=== PATIENT | male | born 1975 | race Caucasian/White ===

== ENCOUNTER 2017-05-28 20:09 | Emergency (ER) | payer OTHER ==
[~2017-05-28] VITALS: Ht 180.3 cm; Wt 104.5 kg
[2017-05-28] MEDS ORDERED: HYDROCODONE/ACETAMINOPHEN 5-325 MG TABLET PO ONE (21:00)
[2017-05-28 23:08] VITALS: BP 140/85
== END 2017-05-28 23:59 | disposition home or self-care (01) ==
LOC: EMS 20:11
DX: S49.91XA Unspecified injury of right shoulder and upper arm, initial encounter (principal); W10.9XXA Fall (on) (from) unspecified stairs and steps, initial encounter; Y93.89 Activity, other specified; Y92.89 Other specified places as the place of occurrence of the external cause; Y99.8 Other external cause status
CPT/HCPCS: 73200; 99284

== ENCOUNTER 2017-08-02 23:40 | Emergency (ER) | payer MEDICAID, OTHER ==
[~2017-08-02] VITALS: Ht 180.3 cm; Wt 109.0 kg
[2017-08-03] MEDS ORDERED: PROMETHAZINE HCL/CODEINE 6.25-10MG/5ML SYRUP UDCUP PO ONE (03:15)
[2017-08-03] MEDS ORDERED: KETOROLAC TROMETHAMINE 60 MG/2 ML VIAL IM ONE (03:15)
[2017-08-03] MEDS ORDERED: IPRATROPIUM BROMIDE 0.5 MG/2.5 ML NEB SOLUTION NEB ONE (03:15)
[2017-08-03] MEDS ORDERED: ALBUTEROL SULFATE 2.5 MG/0.5 ML NEB SOLUTION NEB ONE (03:15)
[2017-08-03 03:42] VITALS: BP 130/82
== END 2017-08-03 03:44 | disposition home or self-care (01) ==
LOC: EMS 23:41
DX: B34.9 Viral infection, unspecified (principal); J02.9 Acute pharyngitis, unspecified; J00 Acute nasopharyngitis [common cold]
CPT/HCPCS: 71045; 94640; 96372; 99283; J1885; J7613

== ENCOUNTER 2018-09-18 11:28 | Emergency (ER) | payer MEDICAID ==
[~2018-09-18] VITALS: Ht 182.9 cm; Wt 106.8 kg
[2018-09-18 13:00] VITALS: BP 134/82
== END 2018-09-18 13:06 | disposition home or self-care (01) ==
LOC: EDUNIT# 11:28 → EMS 11:34
DX: R06.83 Snoring (principal); R06.02 Shortness of breath; R51 Headache

== ENCOUNTER 2019-03-24 21:04 | Emergency (ER) | payer SELFPAY ==
[~2019-03-24] VITALS: Ht 180.3 cm; Wt 115.9 kg
[2019-03-24] MEDS ORDERED: PERTUSS(ACELL),DIPH,TET VAC/PF 0.5 ML VIAL IM ONE (21:45)
[2019-03-24 22:40] VITALS: BP 135/71
== END 2019-03-24 22:41 | disposition home or self-care (01) ==
LOC: EMS 21:05
DX: S91.312A Laceration without foreign body, left foot, initial encounter (principal); W25.XXXA Contact with sharp glass, initial encounter; Y93.89 Activity, other specified; Y92.89 Other specified places as the place of occurrence of the external cause; Y99.8 Other external cause status
CPT/HCPCS: 12001; 90471; 90715

== ENCOUNTER 2021-03-13 23:21 | Emergency (ER) | payer MEDICAID ==
[~2021-03-13] VITALS: Ht 180.3 cm; Wt 109.1 kg
[2021-03-14 00:27] LABS: COVID AG,FIA SOURCE NASOPHARYNGEAL
[2021-03-14] MEDS ORDERED: ACETAMINOPHEN/CODEINE 300-30 MG TABLET PO ONE (01:15)
[2021-03-14] MEDS ORDERED: IBUPROFEN 600 MG TABLET PO ONE (01:15)
[2021-03-14] MEDS ORDERED: GuaiFENesin/D-METHORPHAN [SUGAR-FREE] 200-20MG/10 ML SYRUP UDCUP PO ONE (01:15)
[2021-03-14 02:30] VITALS: BP 129/88
== END 2021-03-14 02:45 | disposition home or self-care (01) ==
LOC: EMS 23:23
DX: U07.1 COVID-19 (principal)
CPT/HCPCS: 87426; 99283; U0003

== ENCOUNTER 2022-06-25 16:35 | Emergency (ER) | payer MEDICAID ==
[~2022-06-25] VITALS: Ht 180.3 cm; Wt 110.0 kg
[2022-06-25 18:45] VITALS: BP 121/79
[2022-06-25] MEDS ORDERED: LIDOCAINE/PF 1% 2 ML VIAL IM ONE (18:45)
[2022-06-25] MEDS ORDERED: CefTRIAXone SODIUM 1 GM/VIAL IM ONE (18:45)
[2022-06-25] MEDS ORDERED: AZITHROMYCIN 500 MG TABLET PO ONE (18:45)
== END 2022-06-25 19:04 | disposition home or self-care (01) ==
LOC: EMS 16:35
DX: Z20.2 Contact with and (suspected) exposure to infections with a predominantly sexual mode of transmission (principal)
CPT/HCPCS: 99283; 96372; J0696; J3490; Q9967

== ENCOUNTER 2022-11-09 18:19 | Emergency (ER) | payer MEDICAID ==
[~2022-11-09] VITALS: Ht 180.3 cm; Wt 100.0 kg
[2022-11-09 18:23] VITALS: BP 151/88
[2022-11-09 20:07] LABS: APPEARANCE,URINE TURBID (CLEAR); BILIRUBIN,URINE NEGATIVE (NEGATIVE); GLUCOSE, URINE (UA) NEGATIVE (NEGATIVE); KETONES,URINE NEGATIVE (NEGATIVE); LEUKOCYTE ESTERASE ,URINE NEGATIVE (NEGATIVE); NITRATE,URINE NEGATIVE (NEGATIVE); OCCULT BLOOD,URINE NEGATIVE (NEGATIVE); PROTEIN,URINE 30-70 mg/dL (NEGATIVE); UROBILINOGEN,URINE <=1.0 mg/dL (<=1.0)
[2022-11-09] MEDS ORDERED: LIDOCAINE/PF 1% 2 ML VIAL IM ONE (21:30)
[2022-11-09] MEDS ORDERED: AZITHROMYCIN 500 MG TABLET PO ONE (21:30)
[2022-11-09] MEDS ORDERED: CefTRIAXone SODIUM 1 GM/VIAL IM ONE (21:30)
[2022-11-09] MEDS ORDERED: DOXY-354 PO (21:45)
[2022-11-09] MEDS ORDERED: LIDOCAINE/PF 1% 2 ML VIAL ONE (22:02)
== END 2022-11-09 22:17 | disposition home or self-care (01) ==
LOC: EMS 18:22
DX: Z20.2 Contact with and (suspected) exposure to infections with a predominantly sexual mode of transmission (principal); F15.90 Other stimulant use, unspecified, uncomplicated
CPT/HCPCS: 99283; 81003; 87491; 87591; 96372; J0696; J3490; Q9967

== ENCOUNTER 2022-11-15 18:58 | Emergency (ER) | payer MEDICAID ==
[~2022-11-15] VITALS: Ht 180.3 cm; Wt 102.3 kg
[~2022-11-15 18:58] MED LIST: DOXY-354 PO
[2022-11-15 19:35] LABS: COVID AG,FIA SOURCE NASAL SWAB
[2022-11-15 19:52] LABS: INFLUENZA TYPE A NEGATIVE FOR TYPE A (NEGATIVE); INFLUENZA TYPE B NEGATIVE FOR TYPE B (NEGATIVE)
[2022-11-15 22:25] VITALS: BP 149/90
== END 2022-11-15 22:27 | disposition home or self-care (01) ==
LOC: EMS 18:58
DX: J06.9 Acute upper respiratory infection, unspecified (principal); F15.90 Other stimulant use, unspecified, uncomplicated; Z20.822 Contact with and (suspected) exposure to COVID-19
CPT/HCPCS: 71045; 87804; 99284

== ENCOUNTER 2023-06-20 10:39 | Emergency (ER) | payer MEDICAID ==
[~2023-06-20] VITALS: Ht 180.3 cm; Wt 100.0 kg
[2023-06-20 10:46] VITALS: TEMP 98.1
[2023-06-20] MEDS ORDERED: ACETAMINOPHEN 500 MG TABLET PO ONE (12:30)
[2023-06-20 12:32] LABS: COVID AG,FIA SOURCE NASAL SWAB
[2023-06-20 12:45] LABS: INFLUENZA TYPE A NEGATIVE FOR TYPE A (NEGATIVE); INFLUENZA TYPE B NEGATIVE FOR TYPE B (NEGATIVE)
[2023-06-20 12:46] LABS: SARS-COV2 (COVID) ANTIGEN,FIA Negative (Negative)
[2023-06-20 13:37] VITALS: BP 132/81; PULSE 86; RESP 18
[2023-06-20] MEDS ORDERED: BENZ-227 PO (14:07)
[2023-06-20] MEDS ORDERED: AZIT250T9 PO (14:07)
== END 2023-06-20 14:20 | disposition home or self-care (01) ==
LOC: EMS 10:39
DX: J06.9 Acute upper respiratory infection, unspecified (principal); Z20.822 Contact with and (suspected) exposure to COVID-19
CPT/HCPCS: 71045; 87804; 99284

== ENCOUNTER 2024-07-29 19:04 | Emergency (ER) | payer MEDICAID ==
[~2024-07-29] VITALS: Ht 180.3 cm; Wt 108.0 kg
[~2024-07-29 19:04] MED LIST changes: +BENZ-227 PO; -DOXY-354 PO
[2024-07-29 19:10] VITALS: TEMP 98.3
[2024-07-29] MEDS: HYDROCODONE/ACETAMINOPHEN 5-325 MG TABLET PO ONE (19:29)
[2024-07-29] MEDS: PERTUSS(ACELL),DIPH,TET/PF 0.5 ML SYRINGE [ADULT] IM. ONE (19:29)
[2024-07-29] MEDS: LIDOCAINE 1% 10 ML VIAL PERC ONE (20:23)
[2024-07-29] MEDS: BACITRACIN 0.9 GM PACKET OINTMENT TP ONE (21:00)
[2024-07-29] MEDS ORDERED: CEPH-558 PO (21:06)
[2024-07-29] MEDS ORDERED: IBUP-1492 PO (21:07)
[2024-07-29 21:10] VITALS: BP 131/77; PULSE 70; RESP 16; O2SAT 98
== END 2024-07-29 21:32 | disposition home or self-care (01) ==
LOC: EMS 19:05
DX: S61.210A Laceration without foreign body of right index finger without damage to nail, initial encounter (principal); W23.0XXA Caught, crushed, jammed, or pinched between moving objects, initial encounter; Y93.89 Activity, other specified; Y92.89 Other specified places as the place of occurrence of the external cause; Y99.8 Other external cause status
CPT/HCPCS: 99283; 73140; 90715; 90471; 12001; J3490

== ENCOUNTER 2024-12-27 16:26 | Emergency (ER) | payer MEDICAID, OTHER ==
[~2024-12-27] VITALS: Ht 180.3 cm; Wt 109.1 kg
[~2024-12-27 16:26] MED LIST changes: -BENZ-227 PO; +CEPH-558 PO; +IBUP-1492 PO
[2024-12-27 16:29] VITALS: TEMP 98.6
[2024-12-27 17:00] LABS: BASOPHILS % (AUTO) 0.1 % (0.0-2.0); EOSINOPHILS % (AUTO) 0.5 % (1.0-6.0); HEMATOCRIT 47.3 % (41-53); LYMPHOCYTES # (AUTO) 0.8 K/uL (1.0-4.8); LYMPHOCYTES % (AUTO) 6.7 % (22.0-44.0); MEAN CORPUSCULAR HEMOGLOBIN 30.8 pg (26.0-34.0); MEAN CORPUSCULAR HGB CONC 33.8 G/dL (31.0-37.0); MEAN CORPUSCULAR VOLUME 91 fL (80-100); MONOCYTES # (AUTO) 0.5 K/uL (0.1-1.0); MONOCYTES % (AUTO) 4.9 % (2.0-9.0); NEUTROPHILS # (AUTO) 9.8 K/uL (1.8-7.7); PLATELET COUNT (AUTO) 230 K/uL (150-450); RED CELL DISTRIBUTION WIDTH 12.6 % (11.5-14.5); WHITE BLOOD COUNT (AUTO) 11.2 K/uL (4.5-11.0)
[2024-12-27 17:04] LABS: NEUTROPHILS % (AUTO) 87.8 % (40.0-70.0)
[2024-12-27 17:11] LABS: ANION GAP 8 mmol/L (8-16); CALCIUM, TOTAL 8.6 mg/dL (8.8-10.5); CARBON DIOXIDE 26 mmol/L (22-29); CHLORIDE 100 mmol/L (98-107); CREATININE 0.84 mg/dL (0.60-1.30); GLOMERULAR FILTR. RATE CALC > 60 mL/min (>60); GLUCOSE,RANDOM 112 mg/dL (70-110); SODIUM SERUM 134 mmol/L (136-145); UREA NITROGEN, BLOOD 17 mg/dL (7-18)
[2024-12-27 17:13] LABS: ALBUMIN 3.6 g/dL (3.4-5.0); BILIRUBIN,DIRECT 0.2 mg/dL (0.00-0.20); BILIRUBIN,TOTAL 1.4 mg/dL (0.1-1.0); TOTAL PROTEIN, SERUM 7.1 g/dL (6.4-8.2)
[2024-12-27] MEDS: MAG HYDROX/ALUMINUM HYD/SIMETH 30 ML SUSPENSION UDCUP PO ONE (17:24)
[2024-12-27] MEDS: SODIUM CHLORIDE 0.9% 1,000 ML IV ONE (17:24)
[2024-12-27] MEDS: ONDANSETRON HCL 4 MG/2 ML VIAL IVP ONE (17:24)
[2024-12-27] MEDS: FAMOTIDINE 20 MG/2 ML VIAL IVP ONE (17:24)
[2024-12-27] MEDS: MORPHINE SULFATE 2 MG/ML SYRINGE IVP ONE (17:25)
[2024-12-27] MEDS ORDERED: IOHEXOL 350 MG/ML 100 ML VIAL ONE (17:35)
[2024-12-27] MEDS ORDERED: ONDA-104 PO (21:32)
[2024-12-27] MEDS ORDERED: IBUP-1492 PO (21:32)
[2024-12-27 22:11] VITALS: BP 126/73; PULSE 88; RESP 18; O2SAT 99
== END 2024-12-27 22:58 | disposition home or self-care (01) ==
LOC: EMS 16:28
DX: R10.33 Periumbilical pain (principal); R11.2 Nausea with vomiting, unspecified; R19.7 Diarrhea, unspecified
CPT/HCPCS: 99285; 74177; 96374; 96375; 96361; 80048; 80076; 83690; 85025; 36415; Q9967; J3490; J2270; J2405; J7030